=== PATIENT | female | born 1990 | race Caucasian/White ===

== ENCOUNTER 2019-07-10 08:06 | Inpatient (IN) | payer OTHER, MEDICAID ==
[~2019-07-10] VITALS: Ht 160 cm; Wt 83.0 kg
[2019-07-10 06:45] VITALS: BP 121/86
[2019-07-10] MEDS ORDERED: ATEN-42 PO (08:18)
[2019-07-10] MEDS ORDERED: MORPHINE SULFATE 4 MG/ML CPJ (NOT FOR IM USE) IV STA (08:25)
[2019-07-10 09:22] LABS: CHLORIDE 110 mEq/L (98-107)
[2019-07-10 09:26] LABS: BASOPHILS % 0.8 % (0.0-2.0); HEMATOCRIT. 32.9 % (36.0-48.0); HEMOGLOBIN. 10.7 g/dL (12.0-16.0); LYMPHOCYTES % 21.6 % (20.0-50.0); MEAN CORPUSCULAR HEMOGLOBIN 26.8 pg (28.0-32.0); MEAN CORPUSCULAR VOLUME 82.3 fL (81.0-99.0); MEAN PLATELET VOLUME 7.8 fl (7.4-10.4); MONOCYTES % 7.7 % (2.0-8.0); NEUTROPHILS % 66.9 % (40.0-76.0); PLATELET 361 x1000/uL (130-400); RED CELL DISTRIBUTION WIDTH 15.7 % (11.6-14.6)
[2019-07-10 09:36] LABS: HCG SCREEN NEGATIVE
[2019-07-10] MEDS ORDERED: ONDANSETRON HCL 4MG/2ML INJ IV ONE (10:15)
[2019-07-10] MEDS ORDERED: KETOROLAC 30MG/ML VIAL IV ONE (10:30)
[2019-07-10 14:45] VITALS: BP 125/85
[2019-07-10] MEDS ORDERED: ACET-2708 PO (15:50)
[2019-07-10] MEDS ORDERED: ONDA8TAB6 PO (15:50)
[2019-07-10] MEDS ORDERED: TRAM50TA3 PO (15:50)
[2019-07-10] MEDS ORDERED: IBUP-2029 PO (15:50)
[2019-07-10] MEDS ORDERED: OMEP20TA2 MT (15:50)
[2019-07-10] MEDS ORDERED: PROP150T3 PO (15:50)
[2019-07-10] MEDS ORDERED: ATEN50TA MT (15:50)
[2019-07-10 16:00] VITALS: BP 121/86
[2019-07-10] MEDS: MECLIZINE 25MG TABLET PO PRN ×2 (16:40→22:32)
[2019-07-10] MEDS: ATENOLOL 50 MG TABLET PO SCH (16:40)
[2019-07-10] MEDS: KETOROLAC 30MG/ML VIAL IV PRN (16:41)
[2019-07-10 20:00] VITALS: BP 125/72
[2019-07-10] MEDS: PROPAFENONE HCL 150MG TABLET PO SCH (21:49)
[2019-07-10] MEDS: ACETAMINOPHEN 325MG TABLET PO PRN (21:49)
[2019-07-10] MEDS ORDERED: GUAIFENESIN 200MG/10ML SUGAR FREE UDC PO PRN (23:30)
[2019-07-10] MEDS ORDERED: DIPHENHYDRAMINE 50MG/ML VIAL IV PRN (23:30)
[2019-07-10] MEDS ORDERED: MAGNESIUM/ALUMINUM HYDROXIDE/SIMETHICONE 30ML UDC PO PRN (23:30)
[2019-07-11] VITALS: BP 110/54
[2019-07-11] MEDS: ONDANSETRON HCL 4MG/2ML INJ IV PRN ×2 (00:33→16:16)
[2019-07-11 01:04] LABS: PROTHROMBIN TIME 10.7 sec (9.6-11.0)
[2019-07-11] MEDS: KETOROLAC 30MG/ML VIAL IV PRN ×3 (01:15→16:17)
[2019-07-11] MEDS: ENOXAPARIN 60MG/0.6ML SYR SUBCUT SCH ×2 (01:16→13:02)
[2019-07-11] MEDS ORDERED: IOHEXOL-350 100 ML BOTTLE ONE (01:47)
[2019-07-11 04:00] VITALS: BP 95/49
[2019-07-11] MEDS: OMEPRAZOLE 20MG CAPSULE EXTENDED RELEASE PO SCH ×2 (06:26→22:11)
[2019-07-11] MEDS: PROPAFENONE HCL 150MG TABLET PO SCH ×3 (06:26→22:12)
[2019-07-11] MEDS: SODIUM CHLORIDE 0.9% INJ 3ML FLUSH IVF SCH ×3 (06:27→22:33)
[2019-07-11 08:00] VITALS: BP 93/45
[2019-07-11] MEDS: ATENOLOL 50 MG TABLET PO SCH (08:15)
[2019-07-11 12:00] VITALS: BP 96/54
[2019-07-11] MEDS: ACETAMINOPHEN 325MG TABLET PO PRN ×3 (13:03→21:44)
[2019-07-11] MEDS ORDERED: REGADENOSON 0.4 MG/5 ML IV NR (13:45)
[2019-07-11 16:00] VITALS: BP 103/56
[2019-07-11 20:00] VITALS: BP 107/56
[2019-07-11] MEDS: MECLIZINE 25MG TABLET PO PRN (22:12)
[2019-07-12] VITALS (7 sets, daily range): BP systolic 92–104; BP diastolic 46–65
[2019-07-12] MEDS: ENOXAPARIN 60MG/0.6ML SYR SUBCUT SCH (00:24)
[2019-07-12] MEDS: KETOROLAC 30MG/ML VIAL IV PRN ×2 (00:25→08:01)
[2019-07-12] MEDS: PROPAFENONE HCL 150MG TABLET PO SCH ×2 (07:05→16:41)
[2019-07-12] MEDS: OMEPRAZOLE 20MG CAPSULE EXTENDED RELEASE PO SCH (07:05)
[2019-07-12] MEDS: SODIUM CHLORIDE 0.9% INJ 3ML FLUSH IVF SCH ×2 (07:06→16:40)
[2019-07-12] MEDS: ATENOLOL 50 MG TABLET PO SCH (09:52)
[2019-07-12] MEDS: ACETAMINOPHEN 325MG TABLET PO PRN (09:52)
[2019-07-12] MEDS: ONDANSETRON HCL 4MG/2ML INJ IV PRN (09:57)
[2019-07-12] MEDS: MECLIZINE 25MG TABLET PO PRN (09:57)
[2019-07-12] MEDS ORDERED: IBUPROFEN 600MG TABLET PO NR (11:00)
== END 2019-07-12 17:30 | disposition home or self-care (01) | DRG 243 ==
LOC: ER 08:20 → 5WST 10:29 → ENRESERV 13:53
PROVIDERS: ADMIT Internal Medicine; ATTEND Internal Medicine
DX: K21.9 Gastro-esophageal reflux disease without esophagitis (principal); I10 Essential (primary) hypertension; Z90.49 Acquired absence of other specified parts of digestive tract; Z79.899 Other long term (current) drug therapy; Z86.711 Personal history of pulmonary embolism; Z68.32 Body mass index [BMI] 32.0-32.9, adult
CPT/HCPCS: 36415; 71045; 71275; 78452; 83880; 84484; 84703; 85379; 93005; 93017; 93306; 93970; 96374; 99285; A9500; J1650; J1885; J2270; J2405; J8597; Q9967

== ENCOUNTER 2024-03-12 17:09 | Emergency (ER) | payer SELFPAY ==
[~2024-03-12] VITALS: Ht 165.1 cm; Wt 64.0 kg
[~2024-03-12 17:09] MED LIST: ACET-2708 PO; ATEN-42 PO; ATEN50TA MT; IBUP-2029 PO; OMEP20TA23 MT; ONDA8TAB6 PO; PROP150T3 PO; TRAM50TA3 PO
[2024-03-12 17:13] VITALS: TEMP 98.4; O2SAT 98
[2024-03-12] MEDS: ONDANSETRON HCL 4MG/2ML INJ IV ONE (17:46)
[2024-03-12] MEDS: SODIUM CHLORIDE 0.9% 1,000 ML IV ONE (17:46)
[2024-03-12 18:10] LABS: BASOPHILS % 0.1 % (0.0-2.0); EOSINOPHILS % 0.4 % (0.0-5.0); HEMATOCRIT. 33.5 % (36.0-48.0); HEMOGLOBIN. 10.6 g/dL (12.0-16.0); LYMPHOCYTES % 7.9 % (20.0-50.0); MEAN CORPUSCULAR HEMOGLOBIN 27.5 pg (28.0-32.0); MEAN CORPUSCULAR HGB CONC 31.7 g/dL (31.0-37.0); MEAN CORPUSCULAR VOLUME 86.9 fL (81.0-99.0); MONOCYTES % 4.1 % (2.0-8.0); NEUTROPHILS % 87.5 % (40.0-76.0); PLATELET 312 x1000/uL (130-400); RED BLOOD CELL COUNT 3.86 mill/uL (4.2-5.4); RED CELL DISTRIBUTION WIDTH 15.4 % (11.6-14.6); WHITE BLOOD COUNT 11.8 x1000/uL (4.5-11.0)
[2024-03-12 18:17] LABS: CHLORIDE 112 mEq/L (98-107); POTASSIUM 3.5 mEq/L (3.5-5.1); SODIUM 142 mEq/L (136-145)
[2024-03-12 18:18] LABS: CARBON DIOXIDE 26 mEq/L (21-32)
[2024-03-12 18:19] LABS: CALCIUM 8.2 mg/dL (8.7-10.4)
[2024-03-12 18:23] LABS: CREATININE 0.7 mg/dL (0.6-1.0); GLUCOSE 75 mg/dL (70-105); UREA NITROGEN BLOOD 8 mg/dL (9-23)
[2024-03-12 18:26] LABS: ETHANOL BLOOD < 10 mg/dL (<10); TROPONIN I HIGH SENSITIVITY < 4 ng/L (3.0-34)
[2024-03-12 18:27] LABS: HCG SCREEN NEGATIVE
[2024-03-12] MEDS: KETOROLAC 30MG/ML VIAL IV ONE (18:49)
[2024-03-12] MEDS: METOCLOPRAMIDE HCL 10MG/2ML VIAL IV ONE (18:49)
[2024-03-12 19:12] VITALS: BP 117/72; PULSE 98; RESP 17
== END 2024-03-12 19:20 | disposition home or self-care (01) ==
LOC: ER 17:09
DX: I47.10 Supraventricular tachycardia, unspecified (principal); R00.2 Palpitations; G43.909 Migraine, unspecified, not intractable, without status migrainosus; I10 Essential (primary) hypertension; Z79.899 Other long term (current) drug therapy
CPT/HCPCS: 80048; 80320; 84703; 83880; 83605; 83690; 85025; 84484; 36415; 71045; 93005; 96361; 96374; 96375; 99285; J1885; J2765; J2405; J7030; G0480